=== PATIENT | male | born 1965 | race Two or more races ===

== ENCOUNTER 2019-11-09 12:56 | Outpatient (CLI) | payer OTHER ==
[~2019-11-09 12:56] MED LIST: AMOX875T; ASTHMANEX; DIAZ5TAB; DILAUDID; FLONASE; HYDR2TAB29; LISI10TA; LISINOPRIL; METR500T PO; ONDA4TAB10 PO; OXYC500S; SULF-169; TAMS-11; TRAM-47 PO; TRAMADOL; VALIUM
[2019-11-09] MEDS ORDERED: OMNIPAQUE 350 MG/ML, 100ML BOTTLE ONE (14:00)
== END 2019-11-09 23:59 | disposition home or self-care (01) ==
LOC: RAD 12:56
PROVIDERS: ATTEND Family Medicine
DX: K57.32 Diverticulitis of large intestine without perforation or abscess without bleeding (principal); K76.0 Fatty (change of) liver, not elsewhere classified; M43.06 Spondylolysis, lumbar region; M48.061 Spinal stenosis, lumbar region without neurogenic claudication
CPT/HCPCS: 74177; Q9967